=== PATIENT | female | born 1970 | race African-American/Black ===

== ENCOUNTER 2016-07-24 08:55 | Emergency (ER) | payer OTHER ==
[~2016-07-24] VITALS: Ht 160 cm; Wt 68.2 kg
[2016-07-24 10:46] LABS: APPEARANCE,URINE CLOUDY (CLEAR); GLUCOSE, URINE (UA) NEGATIVE (NEGATIVE); KETONES,URINE NEGATIVE (NEGATIVE); LEUKOCYTE ESTERASE ,URINE SMALL (NEGATIVE); OCCULT BLOOD,URINE NEGATIVE (NEGATIVE); PROTEIN,URINE POS 1+ (NEGATIVE)
[2016-07-24 10:47] LABS: ADD UA MICROSCOPIC YES
[2016-07-24 10:53] LABS: RBC,URINE 0-2 /HPF (0-2)
[2016-07-24 10:55] LABS: SQUAMOUS EPITHELIAL CELL,UR Many /LPF (None Seen); URINALYSIS COMMENT Few Sperm seen.
[2016-07-24] MEDS ORDERED: KETOROLAC TROMETHAMINE 60 MG/2 ML VIAL IM ONE (11:15)
[2016-07-24] MEDS ORDERED: OxyCODONE HCL/ACETAMINOPHEN 5-325 MG TABLET PO ONE (11:15)
[2016-07-24 12:10] VITALS: BP 117/71
== END 2016-07-24 12:13 | disposition home or self-care (01) ==
LOC: EMS 08:57
DX: S39.012A Strain of muscle, fascia and tendon of lower back, initial encounter (principal); F17.210 Nicotine dependence, cigarettes, uncomplicated; X58.XXXA Exposure to other specified factors, initial encounter; Y93.89 Activity, other specified; Y92.89 Other specified places as the place of occurrence of the external cause; Y99.8 Other external cause status
CPT/HCPCS: 81001; 84703; 96372; 99284; J1885

== ENCOUNTER 2016-12-26 09:00 | Emergency (ER) | payer OTHER ==
[~2016-12-26] VITALS: Ht 160 cm; Wt 63.6 kg
[2016-12-26] MEDS ORDERED: IBUPROFEN 800 MG TABLET PO ONE (10:15)
[2016-12-26 10:49] VITALS: BP 115/64
== END 2016-12-26 10:50 | disposition home or self-care (01) ==
LOC: EMS 09:01
DX: L84 Corns and callosities (principal); F17.210 Nicotine dependence, cigarettes, uncomplicated
CPT/HCPCS: 99282

== ENCOUNTER 2018-01-16 08:46 | Emergency (ER) | payer OTHER ==
[~2018-01-16] VITALS: Ht 160 cm; Wt 58.2 kg
[2018-01-16] MEDS ORDERED: KETOROLAC TROMETHAMINE 60 MG/2 ML VIAL IM ONE (09:45)
[2018-01-16] MEDS ORDERED: CYCLOBENZAPRINE HCL 10 MG TABLET PO ONE (09:45)
[2018-01-16 10:35] VITALS: BP 102/77
== END 2018-01-16 10:44 | disposition home or self-care (01) ==
LOC: EMS 08:47
DX: M54.5 Low back pain (principal); F17.210 Nicotine dependence, cigarettes, uncomplicated
CPT/HCPCS: 81002; 96372; 99283; 99406; J1885

== ENCOUNTER 2021-01-08 15:52 | Emergency (ER) | payer OTHER ==
[~2021-01-08] VITALS: Ht 160 cm; Wt 65.0 kg
[2021-01-08 19:30] VITALS: BP 129/73
== END 2021-01-08 19:30 | disposition home or self-care (01) ==
LOC: EMS 15:52
DX: S39.012A Strain of muscle, fascia and tendon of lower back, initial encounter (principal); S80.02XA Contusion of left knee, initial encounter; S80.01XA Contusion of right knee, initial encounter; F17.210 Nicotine dependence, cigarettes, uncomplicated; W10.9XXA Fall (on) (from) unspecified stairs and steps, initial encounter; Y93.01 Activity, walking, marching and hiking; Y92.89 Other specified places as the place of occurrence of the external cause; Y99.8 Other external cause status
CPT/HCPCS: 99283

== ENCOUNTER 2024-07-14 08:31 | Emergency (ER) | payer OTHER ==
[~2024-07-14] VITALS: Ht 160 cm; Wt 65.9 kg
[~2024-07-14 08:31] MED LIST: CYCL5TAB3 PO; HYDR-4069 PO; IBUP-1493 PO; NICO-803 TD
[2024-07-14 08:48] VITALS: BP 129/88; PULSE 88; RESP 17; TEMP 97.8; O2SAT 96
[2024-07-14 09:24] LABS: ANION GAP 7 mmol/L (8-16); BASOPHILS % (AUTO) 0.4 % (0.0-2.0); CALCIUM, TOTAL 9.1 mg/dL (8.8-10.5); CARBON DIOXIDE 31 mmol/L (22-29); CHLORIDE 102 mmol/L (98-107); CREATININE 0.93 mg/dL (0.60-1.30); EOSINOPHILS % (AUTO) 0.8 % (1.0-6.0); GLOMERULAR FILTR. RATE CALC > 60 mL/min (>60); GLUCOSE,RANDOM 127 mg/dL (70-110); HEMATOCRIT 40.8 % (36-46); HEMOGLOBIN 13.4 g/dL (12.0-16.0); LYMPHOCYTES # (AUTO) 2.7 K/uL (1.0-4.8); LYMPHOCYTES % (AUTO) 30.2 % (22.0-44.0); MEAN CORPUSCULAR HEMOGLOBIN 27.8 pg (26.0-34.0); MEAN CORPUSCULAR HGB CONC 32.8 G/dL (31.0-37.0); MEAN CORPUSCULAR VOLUME 85 fL (80-100); MONOCYTES # (AUTO) 0.4 K/uL (0.1-1.0); MONOCYTES % (AUTO) 4.5 % (2.0-9.0); NEUTROPHILS # (AUTO) 5.7 K/uL (1.8-7.7); NEUTROPHILS % (AUTO) 64.1 % (40.0-70.0); PLATELET COUNT (AUTO) 306 K/uL (150-450); POTASSIUM 4.1 mmol/L (3.5-5.1); RED BLOOD CELL COUNT(AUTO) 4.81 MIL/uL (4.00-5.20); RED CELL DISTRIBUTION WIDTH 13.7 % (11.5-14.5); SODIUM SERUM 140 mmol/L (136-145); UREA NITROGEN, BLOOD 7 mg/dL (7-18); WHITE BLOOD COUNT (AUTO) 8.8 K/uL (4.5-11.0)
[2024-07-14 09:34] LABS: TROPONIN I-HIGH SENSITIVITY 4 ng/L (<51)
[2024-07-14] MEDS ORDERED: METH-659 PO (12:14)
[2024-07-14] MEDS ORDERED: IBUP-1554 PO (12:14)
[2024-07-14] MEDS ORDERED: HYDR-4062 PO (12:14)
[2024-07-14] MEDS: IBUPROFEN 600 MG TABLET PO ONE (12:18)
[2024-07-14] MEDS: HYDROCODONE/ACETAMINOPHEN 5-325 MG TABLET PO ONE (12:18)
[2024-07-14] MEDS: methocarbamoL 500 MG TABLET PO ONE (12:18)
== END 2024-07-14 13:13 | disposition home or self-care (01) ==
LOC: EMS 08:33
DX: M25.512 Pain in left shoulder (principal); E78.00 Pure hypercholesterolemia, unspecified; F17.210 Nicotine dependence, cigarettes, uncomplicated; Z79.899 Other long term (current) drug therapy
CPT/HCPCS: 71045; 80048; 84484; 85025; 93005; 99285; 36415-L1; 36415-TC

== ENCOUNTER 2024-07-27 12:07 | Emergency (ER) | payer OTHER ==
[~2024-07-27] VITALS: Ht 160 cm; Wt 65.9 kg
[~2024-07-27 12:07] MED LIST changes: -CYCL5TAB3 PO; +HYDR-4062 PO; -HYDR-4069 PO; -IBUP-1493 PO; +IBUP-1554 PO; +METH-659 PO; -NICO-803 TD
[2024-07-27 12:12] VITALS: TEMP 98.2
[2024-07-27] MEDS ORDERED: BACL10TA PO (13:33)
[2024-07-27] MEDS ORDERED: ACET-2080 PO (13:33)
[2024-07-27 14:57] VITALS: BP 127/75; PULSE 83; RESP 16; O2SAT 98
== END 2024-07-27 15:08 | disposition home or self-care (01) ==
LOC: EMS 12:07
DX: M54.6 Pain in thoracic spine (principal); E78.00 Pure hypercholesterolemia, unspecified; F17.210 Nicotine dependence, cigarettes, uncomplicated
CPT/HCPCS: 99283; Z7502